=== PATIENT | male | born 1960 | race Caucasian/White ===

== ENCOUNTER → 2017-05-15 | Outpatient (CLI) | payer OTHER ==
--- NOTE | 2017-05-15 12:28 | PCVCIMAG ---
APPROVED REPORT Exam: Stress Echocardiogram Indication: Coronary atherosclerosis, DM, Dyspnea, HTN Patient Location: Echo lab Stress Nurse: Ilda Pruitt RN Status: routine Ht: 6 ft 1 in HR: 78 bpm BP: 128/82 mmHg Rhythm: NSR Procedure The patient underwent an Exercise Stress Test using the Julien Protocol. Blood pressure, heart rate, and EKG were monitored. An Echocardiogram was performed by mobile home technician in four stages in quad fashion. At peak stress, four selected images were obtained and placed side by side with resting images for comparison. Stress Test Details Stress Test: Exercise stress testing was performed using a Julien protocol. HR Resting HR: 78 bpmMax Heart Rate (APMHR): 165 bpm Max HR Achieved: 150 bpmTarget HR (85% APMHR): 140 bpm % of APMHR: 90 Recovery HR: 85 bpm HR response to stress: Normal HR response to stress BP Resting BP: 128/82 mmHg Max BP: 208/86 mmHg Recovery BP: 166/82 mmHg ECG Resting ECG: Sinus Rhythm with PVCs Stress ECG: Sinus Rhythm Arrhythmia: Isolated PVCs Recovery ECG: Sinus Rhythm Recovery ST Change: Normal Recovery Arrhythmia: Isolated PVCs Clinical Reason for Termination: Dyspnea, Maximal effort Stress Symptoms: Dyspnea Exercise duration: 7 min 30 sec Highest Stage Achieved: Stage 3: 3.4 mph at 14% grade. Exercise capacity: 10.1 METs Overall Exercise Capacity for Age: Normal Pre-Stress Echo The resting Echocardiogram showed normal left ventricular contractility with an estimated Ejection Fraction of about >55%. Normal wall motion in all segments on baseline images. Post-Stress Echo The stress Echocardiogram showed normal left ventricular contractility with an estimated Ejection Fraction of about 65%. Normal augmentation of wall motion in all segments on post stress images. Clinical No clinical or ECG evidence for ischemia. Conclusion Clinical Response: Non-ischemic Exercise Capacity: Average Stress ECG Response: Non-ischemic Stress Echo Images: Non-ischemic The left ventricle is normal in size and wall thickness in both the rest and stress images. Ascending aorta mildly dilated to 4.1 cm. Other Information Study Quality: Adequate <Conclusion> The left ventricle is normal in size and wall thickness in both the rest and stress images. Ascending aorta mildly dilated to 4.1 cm.
== END | disposition home or self-care (01) ==
LOC: PCVCIMAG 09:38
PROVIDERS: ATTEND Internal Medicine Cardiovascular Disease
DX: I25.10 Atherosclerotic heart disease of native coronary artery without angina pectoris (principal); I10 Essential (primary) hypertension; I73.9 Peripheral vascular disease, unspecified; E78.00 Pure hypercholesterolemia, unspecified; E11.9 Type 2 diabetes mellitus without complications; I49.3 Ventricular premature depolarization; I44.4 Left anterior fascicular block; I77.819 Aortic ectasia, unspecified site; Z79.82 Long term (current) use of aspirin; Z82.49 Family history of ischemic heart disease and other diseases of the circulatory system; Z79.84 Long term (current) use of oral hypoglycemic drugs; Z88.0 Allergy status to penicillin
CPT/HCPCS: 93325; 93351

== ENCOUNTER → 2019-05-16 | Outpatient (CLI) | payer OTHER ==
--- NOTE | 2019-05-16 13:04 | PCVCIMAG ---
APPROVED REPORT Study performed: 05/16/2019 10:16:58 Exam: Stress Echocardiogram Indication: Hyperlipidemia, Hypertension Patient Location: Echo lab Stress Nurse: Angela Sheppard RN Status: routine Ht: 6 ft 0 in HR: 67 bpm BP: 138/84 mmHg Rhythm: NSR, PVC's Medical History Medical History: Diabetes, Strong family history Procedure The patient underwent an Exercise Stress Test using the Julien Protocol. Blood pressure, heart rate, and EKG were monitored. An Echocardiogram was performed by entry level installation technician in four stages in quad fashion. At peak stress, four selected images were obtained and placed side by side with resting images for comparison. Stress Test Details Stress Test: Exercise stress testing was performed using a Julien protocol. HR Resting HR: 67 bpmMax Heart Rate (APMHR): 163 bpm Max HR Achieved: 146 bpmTarget HR (85% APMHR): 138 bpm % of APMHR: 89 Recovery HR: 81 bpm HR response to stress: Normal HR response to stress BP Resting BP: 138/84 mmHg Max BP: 146/84 mmHg Recovery BP: 120/70 mmHg BP response to stress: Normal blood pressure response to stress. ECG Resting ECG: Sinus Rhythm Stress ECG: Sinus Rhythm, PVCs, PAC's, couplets Arrhythmia: PVC's, PAC's Recovery ECG: PVC's, PAC's, couplets Recovery Arrhythmia: PVC's, PAC's, couplets Clinical Reason for Termination: Maximal effort Exercise duration: 9 min 37 sec Highest Stage Achieved: Stage 4: 4.2 mph at 16% grade. Exercise capacity: 12.00 METs Overall Exercise Capacity for Age: Normal Pre-Stress Echo The resting Echocardiogram showed normal left ventricular contractility with an estimated Ejection Fraction of about 55-60%. Normal wall motion in all segments on baseline images. Post-Stress Echo The stress Echocardiogram showed normal left ventricular contractility with an estimated Ejection Fraction of about 60-65%. Normal augmentation of wall motion in all segments on post stress images. Clinical No clinical or ECG evidence for ischemia. Conclusion Clinical Response: Non-ischemic Exercise Capacity: Average Stress ECG Response: Non-ischemic Stress Echo Images: Non-ischemic The left ventricle is normal in size and wall thickness in both the rest and stress images. No significant valvlular abnormalties. Other Information Study Quality: Good <Conclusion> The left ventricle is normal in size and wall thickness in both the rest and stress images. No significant valvlular abnormalties.
== END | disposition home or self-care (01) ==
LOC: PCVCIMAG 09:54
PROVIDERS: ATTEND Internal Medicine Cardiovascular Disease
DX: I71.2 Thoracic aortic aneurysm, without rupture (principal); I10 Essential (primary) hypertension; I73.9 Peripheral vascular disease, unspecified; E78.00 Pure hypercholesterolemia, unspecified; E11.9 Type 2 diabetes mellitus without complications; Z88.0 Allergy status to penicillin
CPT/HCPCS: 93325; 93351